=== PATIENT | female | born 1980 | race American Indian/Alaskan Native ===

== ENCOUNTER 2017-07-11 05:13 | Emergency (ER) | payer BC ==
--- NOTE | 2017-07-11 07:12 | Emergency Department Report ---
ED Headache HPI - General Chief Complaint: High BP Stated Complaint: HTN Time Seen by Provider: 07/11/17 07:08 Source: patient Exam Limitations: no limitations - History of Present Illness Initial Comments: This is a 37 y.o. female that presents with headache, eye pressure, and nausea for 1 day. She have a history of hypertension and currently taking lisinopril- HCTZ 20-12.5 mg po daily intermittently. She is out of medication or had a few pills and taking medicine as needed because she no longer have a primary care provider. She last took medication 3 days ago and has been feeling sick since. She is feeling nauseous with a migraine headache in frontal region since yesterday. She tried taking tylenol with no improvement of symptoms. Patient reports feeling like this every time she is off her blood pressure medicine. Denies chest pain, palpitations, visual changes, and SOB. Timing/Duration: 24 hours, constant Quality: severe, pressure (around eyes), throbbing Head Injury Location: frontal Recent Head Trauma: no recent headache/trauma, occasional headaches Modifying Factors: improves with: medication Associated Symptoms: nausea/vomiting (nausea w/o vomiting). denies: denies symptoms, confusion, fatigue, facial pain, fever/chills, flushing, loss of consciousness, nasal congestion, nasal drainage, numbness in legs/feet, rash, seizures, sinus infection, stiff neck, vision changes, weakness Allergies/Adverse Reactions: Allergies No Known Allergies Allergy (Unverified 07/11/17 05:39) Home Medications: Ambulatory Orders Lisinopril/Hydrochlorothiazide [Zestoretic 20-12.5 mg] 1 tab PO QDAY 30 Days # 30 tab 07/11/17 ED Review of Systems ROS: Stated complaint: HTN Other details as noted in HPI Constitutional: denies: chills, fever Eyes: eye pain (pressure around eyes) ENT: denies: ear pain, throat pain Respiratory: denies: cough, shortness of breath, wheezing Cardiovascular: denies: chest pain, palpitations Gastrointestinal: nausea. denies: abdominal pain, vomiting, diarrhea Neurological: denies: headache, weakness, paresthesias ED Past Medical Hx - Past Medical History Previous Medical History?: Yes Hx Hypertension: Yes - Surgical History Past Surgical History?: No - Social History Smoking Status: Light Tobacco Smoker Substance Use Type: Alcohol - Medications Home Medications: Home Medications Medication Instructions Recorded Confirmed Last Taken Type Lisinopril/Hydrochlorothiazide 1 tab PO QDAY 30 Days #30 tab 07/11/17 Unknown Rx [Zestoretic 20-12.5 mg] ED Physical Exam - General Limitations: No Limitations General appearance: alert, in no apparent distress - Head Head exam: Present: atraumatic, normocephalic, normal inspection - Eye Eye exam: Present: normal appearance, PERRL, EOMI. Absent: scleral icterus, conjunctival injection, nystagmus, periorbital swelling, periorbital tenderness - ENT ENT exam: Present: normal exam, mucous membranes moist - Respiratory Respiratory exam: Present: normal lung sounds bilaterally. Absent: respiratory distress - Cardiovascular Cardiovascular Exam: Present: regular rate, normal rhythm. Absent: systolic murmur, diastolic murmur, rubs, gallop - GI/Abdominal GI/Abdominal exam: Present: soft, normal bowel sounds - Neurological Exam Neurological exam: Present: alert, oriented X3, CN II-XII intact, normal gait - Skin Skin exam: Present: warm, dry, intact, normal color. Absent: rash ED Course Vital Signs 07/11/17 07/11/17 05:33 07:48 Temperature 98.7 F Pulse Rate 67 59 L Respiratory 18 18 Rate Blood Pressure 161/104 Blood Pressure 153/93 [Left] O2 Sat by Pulse 97 100 Oximetry ED Medical Decision Making - Medical Decision Making This is a 37 y.o. female that presents with headache, eye pressure, and nausea for 1 day. History of HTN. Patient off lisinopril-HCTZ 20-12.5 mg po daily for a few days. Prior to running out of medication she was only taking medicine on and off because she could not get refills. Patient is stable and was examined by me. Given lisinopril 20 mg po, HCTZ 12.5 mg po, ibuprofen 800 mg po, and zofran 4 mg ODT once in ER. Blood pressure 153/93 and reports feeling better. Start lisinopril-HCTZ 20-12.5 mg po daily and follow up with PCP in 1 week. Discussed plan with patient and agreed to plan. No further questions noted by the patient. Discharged home in stable condition. Follow up with PCP in 1 week. Critical care attestation.: If time is entered above; I have spent that time in minutes in the direct care of this critically ill patient, excluding procedure time. ED Disposition Clinical Impression: Migraine Qualifiers: Migraine type: without aura Status migrainosus presence: with status migrainosus Intractability: not intractable Qualified Code(s): G43.001 - Migraine without aura, not intractable, with status migrainosus Hypertension Qualifiers: Hypertension type: essential hypertension Qualified Code(s): I10 - Essential ( primary) hypertension Disposition: - TO HOME OR SELFCARE Is pt being admited?: No Does the pt Need Aspirin: No Condition: Stable Instructions: Migraine Headache (ED), DASH Eating Plan (ED), Low Sodium Diet ( ED), Hypertension (ED) Additional Instructions: Encourage stop smoking to reduce cardiovascular risk. Moderate caffeine consumption is acceptable. Begin and maintain aerobic exercise, with a goal of at least 30 minutes of moderate intensity, dynamic aerobic exercise (walking, jogging, cycling, or swimming) 5 days per week to total 150 minutes as tolerated or recommended by a physician. Take medication daily as prescribed. Follow up with Primary Care Provider in 1 week. Prescriptions: Lisinopril/Hydrochlorothiazide [Zestoretic 20-12.5 mg] 1 tab PO QDAY 30 Days # 30 tab Referrals: [facility] [Provider Group] - 3-[address] [facility] [Provider Group] - 3-5 Days [facility] [Provider Group] - 3-5 Days [facility] [Provider Group] - 3-5 Days Forms: Work/School Release Form(ED) Time of Disposition: 08:05 Print Language: ESTONIAN
[2017-07-11] MEDS ORDERED: ZOFRAN ODT PO ONE (07:24)
[2017-07-11] MEDS ORDERED: HCTZ PO ONE (07:24)
[2017-07-11] MEDS ORDERED: ZESTRIL PO ONE (07:24)
[2017-07-11] MEDS ORDERED: MOTRIN PO ONE (07:25)
[2017-07-11 07:49] VITALS: BP 153/93
== END 2017-07-11 08:11 | disposition home or self-care (01) ==
LOC: ED 05:13
DX: G43.001 Migraine without aura, not intractable, with status migrainosus (principal); I10 Essential (primary) hypertension
CPT/HCPCS: 99282; Q0162

== ENCOUNTER 2017-08-16 02:26 | Emergency (ER) | payer BC ==
[2017-08-16] MEDS ORDERED: TETRACAINE 0.5% ONE (05:03)
[2017-08-16] MEDS ORDERED: BENADRYL IV ONE (05:09)
[2017-08-16] MEDS ORDERED: REGLAN IV ONE (05:09)
[2017-08-16] MEDS ORDERED: NACL 0.9% 1000 ML 1,000 ML IV ONE (05:09)
--- NOTE | 2017-08-16 05:14 | Emergency Department Report ---
Chief Complaint: Headache Stated Complaint: H/A Time Seen by Provider: 08/16/17 04:41 - HPI History of Present Illness: This is a 37-year-old female that presents with right eye pain and headache 3 days. Patient stated this is the worst headache she ever had. Patient stated that right eye pain is the worst pain feels like "eye going to pop out" but denies any visual changes. Patient denies any trauma. Patient also stated has nausea with vomiting since Saturday. - Exam Vital Signs: Vital Signs 08/16/17 02:49 Temperature 98.5 F Pulse Rate 82 Respiratory 16 Rate Blood Pressure 143/95 O2 Sat by Pulse 100 Oximetry Physical Exam: GENERAL: The patient is a well-developed, well-nourished in no apparent distress. Patient is alert and acting appropriately for age. Alert and oriented 3, no apparent distress, normal gait, atraumatic. HEENT: Head is normocephalic and atraumatic. PERRL, Extraocular muscles are intact. Pupils are equal, round, and reactive to light and accommodation. Tonopen 32 to right eye and 36 to left eye. NEUROLOGIC: Cranial nerves II through XII are grossly intact. Alert and oriented x 3. Normal gait. Symmetrical strength and sensation. Reflexes 2+ throughout. Cerebellar testing normal. GCS score of 15. MSE screening note: Focused history and physical exam performed. Due to findings the following was ordered: 1- This initial assessment/diagnostic orders/clinical plan/ treatment(s) is/are subject to change based on pt's health status, clinical progression and re- assessment by fellow clinical providers in the ED. Further treatment and workup at subsequent clinical provers discretion. Patient/guardians urged not to elope from ED as their condition may be serious if not clinically assessed and managed. 2-Kota-pen elevated at 32 with several times testing. 3-Labs ordered 4-CT of head/brain obtained 5-I will start patient with 1L Normal saline, Benadryl and Reglan for headache. 6-Patient was discussed with Dr. Kent and patient is to be seen in the main side ED for further evaluation and treatment. Patient discussed with doctor:: LOLITA YUSUF ED Disposition for MSE Condition: Stable
[2017-08-16] MEDS ORDERED: TETRACAINE 0.5% OU PRN (05:38)
[2017-08-16 05:49] LABS: Hematocrit 42.8 % (30.3-42.9); Hemoglobin 14.4 gm/dl (10.1-14.3); Mean Corpuscular HGB Conc 34 % (30-34); Mean Corpuscular Hemoglobin 30 pg (28-32); Mean Corpuscular Volume 89 fl (79-97)
[2017-08-16 05:51] LABS: Platelet Count 304 K/mm3 (140-440)
[2017-08-16] MEDS ORDERED: DECADRON IV ONE (06:11)
[2017-08-16] MEDS ORDERED: FIORICET PO ONE (06:11)
[2017-08-16] MEDS ORDERED: IMITREX SUB-Q ONE (06:12)
[2017-08-16] MEDS ORDERED: ZOFRAN IM ONE (06:14)
[2017-08-16] MEDS ORDERED: STADOL IV ONE (06:14)
--- NOTE | 2017-08-16 06:17 | Emergency Department Report ---
ED General Adult HPI - General Chief complaint: Headache Stated complaint: H/A Time Seen by Provider: 08/16/17 04:41 Source: patient Mode of arrival: Ambulatory Limitations: No Limitations - History of Present Illness Initial comments: Patient presents to emergency department with a headache that she's had since Saturday. Patient describes the headache as diffuse and throbbing in nature. Patient states she has a history of migraines and this feels very similar to migraines she's had in the past. She denies this being the worse headache in her life. Headache is made worse by a tetanus light and loud sounds. Patient denies fever, chest pain, abdominal pain. - Related Data Previous Rx's Medication Instructions Recorded Last Taken Type Lisinopril/Hydrochlorothiazide 1 tab PO QDAY 30 Days #30 tab 07/11/17 Unknown Rx [Zestoretic 20-12.5 mg] Butalb/Acetamin/Caff 50-325-40 1 tab PO Q6HR PRN #24 tab 08/16/17 Unknown Rx [Fioricet] SUMAtriptan SUCCINATE [Imitrex] 50 mg PO BID PRN #12 tab 08/16/17 Unknown Rx Allergies Allergy/AdvReac Type Severity Reaction Status Date / Time No Known Allergies Allergy Unverified 07/11/17 05:39 ED Review of Systems ROS: Stated complaint: H/A Other details as noted in HPI Comment: All other systems reviewed and negative Constitutional: denies: chills, fever Eyes: denies: eye pain, eye discharge, vision change ENT: denies: ear pain, throat pain Respiratory: denies: cough, shortness of breath, wheezing Cardiovascular: denies: chest pain, palpitations Endocrine: no symptoms reported Gastrointestinal: denies: abdominal pain, nausea, diarrhea Genitourinary: denies: urgency, dysuria, discharge Musculoskeletal: denies: back pain, joint swelling, arthralgia Skin: denies: rash, lesions Neurological: headache. denies: weakness, numbness, paresthesias Psychiatric: denies: anxiety, depression Hematological/Lymphatic: denies: easy bleeding, easy bruising ED Past Medical Hx - Past Medical History Hx Hypertension: Yes Hx Headaches / Migraines: Yes - Surgical History Past Surgical History?: No - Social History Smoking Status: Never Smoker Substance Use Type: None - Medications Home Medications: Home Medications Medication Instructions Recorded Confirmed Last Taken Type Lisinopril/Hydrochlorothiazide 1 tab PO QDAY 30 Days #30 tab 07/11/17 Unknown Rx [Zestoretic 20-12.5 mg] Butalb/Acetamin/Caff 50-325-40 1 tab PO Q6HR PRN #24 tab 08/16/17 Unknown Rx [Fioricet] SUMAtriptan SUCCINATE [Imitrex] 50 mg PO BID PRN #12 tab 08/16/17 Unknown Rx ED Physical Exam - General Limitations: No Limitations General appearance: alert, in no apparent distress - Head Head exam: Present: atraumatic, normocephalic - Eye Eye exam: Present: normal appearance, PERRL, EOMI. Absent: scleral icterus Pupils: Present: normal accommodation - ENT ENT exam: Present: mucous membranes moist - Neck Neck exam: Present: normal inspection, full ROM. Absent: tenderness, meningismus - Respiratory Respiratory exam: Present: normal lung sounds bilaterally. Absent: respiratory distress - Cardiovascular Cardiovascular Exam: Present: regular rate, normal rhythm. Absent: systolic murmur, diastolic murmur, rubs, gallop - GI/Abdominal GI/Abdominal exam: Present: soft, normal bowel sounds - Extremities Exam Extremities exam: Present: normal inspection - Back Exam Back exam: Present: normal inspection - Neurological Exam Neurological exam: Present: alert, oriented X3 - Psychiatric Psychiatric exam: Present: normal affect, normal mood - Skin Skin exam: Present: warm, dry, intact, normal color. Absent: rash ED Course Vital Signs 08/16/17 02:49 Temperature 98.5 F Pulse Rate 82 Respiratory 16 Rate Blood Pressure 143/95 O2 Sat by Pulse 100 Oximetry ED Medical Decision Making - Lab Data Result diagrams: 08/16/17 05:28 08/16/17 06:01 - Medical Decision Making Patient states that she had complete relief of her headache with the medications given. Critical care attestation.: If time is entered above; I have spent that time in minutes in the direct care of this critically ill patient, excluding procedure time. ED Disposition Clinical Impression: Headache Disposition: DC-01 TO HOME OR SELFCARE Is pt being admited?: No Does the pt Need Aspirin: No Condition: Stable Instructions: Acute Headache (ED) Additional Instructions: Return if symptoms become worse. Prescriptions: Butalb/Acetamin/Caff 50-325-40 [Fioricet] 1 tab PO Q6HR PRN #24 tab PRN Reason: Headache SUMAtriptan SUCCINATE [Imitrex] 50 mg PO BID PRN #12 tab PRN Reason: Headache Referrals: NA BERGER MD [Primary Care Provider] - 3-5 Days Time of Disposition: 07:41
[2017-08-16 06:46] LABS: BUN/Creatinine Ratio 16; Blood Urea Nitrogen 11 mg/dL (7-17); Calcium 9.2 mg/dL (8.4-10.2); Hemolysis Index 42
[2017-08-16] MEDS ORDERED: ZOFRAN IV ONE (07:13)
[2017-08-16] MEDS ORDERED: STADOL IV NR (08:00)
[2017-08-16 08:07] VITALS: BP 131/66
[2017-08-16 09:23] LABS: Basophils % (Manual) 0 % (0.0-1.8); Eosinophils % (Manual) 0 % (0.0-4.3); Total Cells Counted 100
== END 2017-08-16 08:06 | disposition home or self-care (01) ==
LOC: ED 02:26
DX: R51 Headache (principal)
CPT/HCPCS: 36415; 80048; 84703; 85007; 85025; 96361; 96372; 96374; 96375; 99284; J0595; J1100; J1200; J2405; J2765; J7030; J3030

== ENCOUNTER 2020-07-25 18:45 | Emergency (ER) | payer BC ==
[2020-07-25 18:51] VITALS: BP 126/86
--- NOTE | 2020-07-25 18:56 | Emergency Department Report ---
- General Chief Complaint: Upper Respiratory Infection Stated Complaint: sinus pains Time Seen by Provider: 07/25/20 18:53 Source: patient Mode of arrival: Ambulatory Limitations: No Limitations - History of Present Illness Initial Comments: 40-year-old female with a past medical history of migraine headaches, and hypertension presents to the ER today complaint of URI symptoms. Patient reports sinus pressure, nasal congestion, rhinorrhea, productive cough, frontal headache and chills. Patient reports mild decrease in her sense of taste, but her sense of smell is good. She denies any fever at home. She denies any apparent ill contacts or known COVID-19 contacts. She reports no chest pain or shortness of breath. She reports no wheezing. She reports no GI or symptoms or any other symptoms at this time. MD Complaint: cough, rhinorrhea, nasal congestion, sinus pain -: days(s) (3) - Related Data Previous Rx's Medication Instructions Recorded Last Taken Type SUMAtriptan SUCCINATE [Imitrex] 50 mg PO BID PRN #12 tab 05/04/18 Unknown Rx Ketorolac [Toradol] 10 mg PO Q6H PRN #20 tablet 12/12/19 Unknown Rx Lisinopril/Hydrochlorothiazide 1 tab PO QDAY 30 Days #30 tab 12/12/19 Unknown Rx [Zestoretic 20-12.5 mg] Methocarbamol [Robaxin] 500 mg PO TID #30 tablet 12/12/19 Unknown Rx Amoxicillin [Trimox CAP] 500 mg PO Q8H #30 capsule 07/25/20 Unknown Rx Butalb/Acetamin/Caff 50-325-40 1 tab PO Q6HR PRN #24 tab 07/25/20 Unknown Rx [Fioricet 50-325-40] Cetirizine HCl [Zyrtec 10mg tab] 10 mg PO DAILY #30 tablet 07/25/20 Unknown Rx Fluticasone [Flonase] 2 spray NS QDAY #1 bottle 07/25/20 Unknown Rx Allergies Allergy/AdvReac Type Severity Reaction Status Date / Time No Known Allergies Allergy Unverified 07/11/17 05:39 ED Review of Systems ROS: Stated complaint: sinus pains Other details as noted in HPI Comment: All other systems reviewed and negative Constitutional: chills. denies: fever Eyes: denies: eye pain, eye discharge, vision change ENT: congestion. denies: ear pain, throat pain, dental pain, hearing loss, epistaxis Respiratory: cough. denies: shortness of breath, SOB with exertion, SOB at rest, stridor, wheezing Cardiovascular: denies: chest pain, palpitations Gastrointestinal: denies: abdominal pain, nausea, vomiting, diarrhea, constipation, hematemesis, melena, hematochezia Genitourinary: denies: urgency, dysuria, frequency, hematuria, discharge, dyspareunia Musculoskeletal: denies: back pain, joint swelling, arthralgia Skin: denies: rash, lesions Neurological: headache Psychiatric: denies: anxiety, depression ED Past Medical Hx - Past Medical History Previous Medical History?: Yes Hx Hypertension: Yes Hx Headaches / Migraines: Yes - Surgical History Past Surgical History?: No - Social History Smoking Status: Current Some Day Smoker Substance Use Type: None - Medications Home Medications: Home Medications Medication Instructions Recorded Confirmed Last Taken Type SUMAtriptan SUCCINATE [Imitrex] 50 mg PO BID PRN #12 tab 05/04/18 Unknown Rx Ketorolac [Toradol] 10 mg PO Q6H PRN #20 tablet 12/12/19 Unknown Rx Lisinopril/Hydrochlorothiazide 1 tab PO QDAY 30 Days #30 tab 12/12/19 Unknown Rx [Zestoretic 20-12.5 mg] Methocarbamol [Robaxin] 500 mg PO TID #30 tablet 12/12/19 Unknown Rx Amoxicillin [Trimox CAP] 500 mg PO Q8H #30 capsule 07/25/20 Unknown Rx Butalb/Acetamin/Caff 50-325-40 1 tab PO Q6HR PRN #24 tab 07/25/20 Unknown Rx [Fioricet 50-325-40] Cetirizine HCl [Zyrtec 10mg tab] 10 mg PO DAILY #30 tablet 07/25/20 Unknown Rx Fluticasone [Flonase] 2 spray NS QDAY #1 bottle 07/25/20 Unknown Rx ED Physical Exam - General Limitations: No Limitations General appearance: alert, in no apparent distress - Head Head exam: Present: atraumatic, normocephalic, normal inspection - Eye Eye exam: Present: normal appearance, PERRL, EOMI Pupils: Present: normal accommodation - ENT ENT exam: Present: normal exam, mucous membranes moist, other (+ frontal sinus ttp) - Expanded ENT Exam Expanded Ear exam: Present: normal external inspection TM/Canal exam: Effusion: Right TM, Left TM Throat exam: Positive: normal inspection - Neck Neck exam: Present: normal inspection, full ROM, lymphadenopathy (anterior cervical ). Absent: meningismus - Respiratory Respiratory exam: Present: normal lung sounds bilaterally. Absent: respiratory distress - Cardiovascular Cardiovascular Exam: Present: regular rate, normal rhythm, normal heart sounds - Neurological Exam Neurological exam: Present: alert, oriented X3, CN II-XII intact, normal gait - Psychiatric Psychiatric exam: Present: normal affect, normal mood - Skin Skin exam: Present: intact ED Course Vital Signs 07/25/20 18:45 Temperature 99.1 F Pulse Rate 99 H Respiratory 18 Rate Blood Pressure 126/86 O2 Sat by Pulse 100 Oximetry Critical care attestation.: If time is entered above; I have spent that time in minutes in the direct care of this critically ill patient, excluding procedure time. ED Disposition Clinical Impression: Sinusitis Disposition: DC- TO HOME OR SELFCARE Is pt being admited?: No Does the pt Need Aspirin: No Condition: Stable Instructions: Sinusitis, Adult Additional Instructions: Take the antibiotics, use the nasal spray and take the Zyrtec as prescribed. Take the pain medication as prescribed for headache. I recommend that you try to get an outpatient COVID-19 test. Drink lots of fluids. Follow-up as needed with the primary care doctor listed on the discharge instructions. Return to the ER if your symptoms changes or worsens in any way. Prescriptions: Butalb/Acetamin/Caff 50-325-40 [Fioricet 50-325-40] 1 tab PO Q6HR PRN #24 tab PRN Reason: Headache Fluticasone [Flonase] 2 spray NS QDAY #1 bottle Amoxicillin [Trimox CAP] 500 mg PO Q8H #30 capsule Cetirizine HCl [Zyrtec 10mg tab] 10 mg PO DAILY #30 tablet Referrals: DEL COE MD [Staff Physician] - 3-5 Days Forms: Work/School Release Form(ED) Time of Disposition: 19:07
== END 2020-07-25 19:02 | disposition home or self-care (01) ==
LOC: ED 18:45
DX: J32.9 Chronic sinusitis, unspecified (principal); I10 Essential (primary) hypertension; G43.909 Migraine, unspecified, not intractable, without status migrainosus; F17.200 Nicotine dependence, unspecified, uncomplicated; Z79.2 Long term (current) use of antibiotics; Z79.899 Other long term (current) drug therapy
CPT/HCPCS: 99282